=== PATIENT | female | born 1950 | race Caucasian/White ===

== ENCOUNTER → 2016-08-25 | Day surgery (SDC) | payer OTHER ==
[~2016-08-25] MED LIST: ALPRAZOLAM PO; DESYREL50 MG PO; DEXILANT60 MG PO; FIORICET W/CODE1 CAP PO; LORTAB 7.5-5001 TAB PO; LYRICA PO; PRILOSEC20 M1 PO
--- NOTE | ~2016-08-25 | OR ---
Unit #: [id number] #: [id number] Patient: KESHA FRANK [id number] [address] [id number] O MR#: [id number] NAME: KESHA FRANK ROOM: Date of Procedure: 08/25/2016 Admission Date: 08/25/2016 Surgeon: Eloy Schultz III, M.D. : 1950 Attending Physician: Eloy Schultz III, M.D. Primary Care Physician: Sami Yun M.D. OPERATIVE REPORT JOB NOTE: CC: DR. SAMI YUN. PREOPERATIVE DIAGNOSES Screening colonoscopy, family history of colon cancer. POSTOPERATIVE DIAGNOSIS Normal colonoscopy. PROCEDURE PERFORMED Colonoscopy to cecum. ANESTHESIA 10 mg of Versed and 50 mg of Demerol. SPECIMENS None. COMPLICATIONS None apparent. INDICATIONS FOR PROCEDURE This is a 66-year-old lady, who is in today for screening colonoscopy. Her last scope was done in 2010. She has a family history of colon cancer in both her mom and dad in which they were diagnosed with that in their 80s. She denies any recent change in bowel habits. DESCRIPTION OF PROCEDURE After the consent was obtained, the patient was brought to the endoscopy suite, placed in the left lateral decubitus position. We titrated the above sedation and I performed a rectal exam. I did not feel any masses. The scope was placed within the rectal vault. Air was insufflated. I navigated the scope all the way to the cecum without any difficulty. She had normal mucosa. No evidence of any polyps or masses and no diverticular disease was seen. The scope was retroflexed within the rectum. No other masses were seen. The scope was then carefully withdrawn. The patient tolerated the procedure without any problems and returned to the recovery room in stable condition. Dictated by... Eloy Schultz III, M.D. Unit #: [id number] #: [id number] Patient: KESHA FRANK VCL/modl TD: 08/26/2016 06:35 JOB #: [id number] OPERATIVE REPORT Page 1 of 1 X Eloy Schultz III, MD PROCEDURE OPERATIVE NOTE
== END | disposition home or self-care (01) ==
LOC: COPS 09:21
PROVIDERS: Surgery
PROC: 0DJD8ZZ Inspection of Lower Intestinal Tract, Via Natural or Artificial Opening Endoscopic (ICD-10-PCS; principal; 2016-08-25 11:00)
DX: Z12.11 Encounter for screening for malignant neoplasm of colon (principal); Z80.0 Family history of malignant neoplasm of digestive organs; K21.9 Gastro-esophageal reflux disease without esophagitis; M19.90 Unspecified osteoarthritis, unspecified site; M79.7 Fibromyalgia; M25.559 Pain in unspecified hip; M54.9 Dorsalgia, unspecified; F17.210 Nicotine dependence, cigarettes, uncomplicated; Z90.710 Acquired absence of both cervix and uterus; Z88.0 Allergy status to penicillin; Z80.3 Family history of malignant neoplasm of breast; Z82.49 Family history of ischemic heart disease and other diseases of the circulatory system
CPT/HCPCS: J2175; J2250